=== PATIENT | female | born 1970 | race Caucasian/White ===

== ENCOUNTER 2018-01-09 08:59 | Inpatient (IN) | payer OTHER ==
[~2018-01-09] VITALS: Ht 154.9 cm; Wt 38.6 kg
[2018-01-09 11:20] VITALS: BP 93/65
--- NOTE | 2018-01-09 11:20 | NUR ---
Pre-admission Pre-admission assessment performed in the intake department of [facility]. Pt is A&O and ambulatory with steady gait. She is mildly intoxicated and answers questions appropriately. Vital signs are: B/P 93/65, HR 88, RR 16, O2 sat 97%, T. 98.0, pain 0/10. She is observed with pin point pupils, she is hyper verbal, with slightly slurred speech. She reports that she has been using Valium and Percocet. Last used both this morning prior to admission. She denies seizure history. Pt is stable and [facility].
[2018-01-09 11:50] LABS: *URINE HCG, QUAL NEGATIVE (NEGATIVE)
[2018-01-09 12:01] LABS: *AMPHETAMINE, URINE NEGATIVE (NEGATIVE); *BARBITURATE, URINE NEGATIVE (NEGATIVE); *CANNABINOID, URINE POSITIVE (NEGATIVE); *COCCAINE, URINE NEGATIVE (NEGATIVE); *OPIATE, URINE POSITIVE (NEGATIVE); *PHENCYCLIDINE SCREEN,URINE NEGATIVE (NEGATIVE)
[2018-01-09 12:30] VITALS: BP 107/62
--- NOTE | 2018-01-09 13:45 | NUR ---
Admission Pt is a 47 yo female who arrived on the [facility] unit on 01/09/18 at 1140 for medically supervised detox from Opioids and Benzodiazapines. She has been using Valium, Teec Nos Pos, and Percocet. She last used Teec Nos Pos 7.5-325mg x4 tabs, Percocet 5-325mg x4 tabs, and Valium 30mg prior to admission. She is A&O and ambulatory with a steady gait. She has NKA, is full code status, and on a regular diet. She appears mildly intoxicated and answers questions appropriately. She is observed with pin point pupils and slightly slurred speech. Pt appears to be under weight. Admission vital signs are: 107/62, HR 69, RR 18, O2 sat 100%, T 97.8, pain 0/10. She is 5'1" and weighs 85lb. She has lost approximately 20lbs over the past 3 months which she relates to her substance use and difficulties in her personal life. She last used Teec Nos Pos 7.5-325mg x4 tabs, Percocet 5-325mg x4 tabs, and Valium 30mg prior to admission. She is tearful during the admission process and expresses feelings of guilt and remorse regarding her substance use. She states "At one point my Doctor told me that if I take another pill I could ". Her past medical history includes spinal fusion in 2016, low back pain, anxiety, and depression. She denies any seizure history. Lung sounds clear, brisk capillary refill, PERRLA, bowel sounds present, abdomen is soft and non-tender, skin is warm and dry. Last bowel movement was this morning. LMP was 07/2017. She denies SI/HI. Substance Abuse History Valium 10-20mg intermittently starting 2 months ago She reports daily usage of 10-20mg over the past 2 weeks due to anxiety regarding coming to treatment. She first used Valium 2 months ago. Last used 30mg at 1000 today. Pt had difficulty reporting exact Valium use. She is even unsure whether she filled her prescriptions once or twice and she reports giving her Valium to friends. Teec Nos Pos 15-20 tabs of 7.5-325mg per day for the past 6 months. She first used Teec Nos Pos 12 years ago. She had 10 months of sobriety beginning in 2015 and started using Teec Nos Pos again 1.5 years ago. She last used 4 tabs this morning prior to admission. She states "I'm used to taking Teec Nos Pos every 2-3 hours". Percocet 7 tabs of 5-325mg over the past two days. A friend gave her 7 tabs of Percocet yesterday. She took 3 tabs yesterday and 4 tabs today at 0800. She does not use Percocet otherwise. The patient uses cocaine via nasal insufflation on an intermittent non-daily basis. First used 15 years and last used 12/30/17. She smokes marijuana daily. First used 31 years ago and last used 01/08/18. She smokes 1 pack of cigarettes per day. The patient attributes her substance use to "a lot of marital problems" which lead to divorce, her Son having substance abuse issues, and pain in her neck. She describes her symptoms of withdrawal as "uncomfortable, jonsing, can't find a place for yourself, depressed, sad, want to scream, dont' know what to do with myself". She also states "I don't really get to that point because I'm high all the time." She decided to come to treatment today because, "I've been meaning to for a long time. I need to get clear. I love my kids and Dad. I physically need to get strong. I need another surgery". She explains that when she is not using "everything is hard to do, including food shopping, laundry, and picking up the kids". After detox she verbalized that she wants to attend [facility] and will not be able to do residential treatment because she "has too many things to take care of at home". She attended treatment one other time. This was at [facility] in 2013 for 2 weeks. Prior to that she was prescribed Suboxone by her Doctor and she detoxed herself off of Teec Nos Pos. She ultimately relapsed after 10 months of sobriety. He longest period of sobriety was 1 year and 3 months starting in 2013. UDS positive for BZD's, Opiates, and Cannabinoids. Her primary care physician is Dr. Batsheva Casiano. Her friends are sources of support. Pt was educated regarding plan of care and all questions answered. Dr. Mercedes on the unit and he evaluated patient. CIWA and COWS not obtained on admission due to patient's recent use of Valium, Teec Nos Pos, and Percocet. She is currently mildly intoxicated although she reports increasing anxiety. Pt educated regarding use of the call light. Safety measures in place.
--- NOTE | 2018-01-09 14:00 | NUR ---
Nursing Note Dr. Mercedes evaluated patient and ordered 4 day Phenobarbital taper to start now and 3 day Subutex taper to start tomorrow. PRN Subutex and Ativan also ordered. Addendum: 01/09/18 at 1925 by JESUS HODGE RN Correction: Note entry time is meant to be 1600.
[2018-01-09] MEDS ORDERED: LORAZEPAM 1 MG TABLET PO PRN (14:45)
[2018-01-09] MEDS ORDERED: LOPERAMIDE HCL 2 MG CAPSULE PO PRN ×2 (14:45)
[2018-01-09] MEDS ORDERED: ONDANSETRON ODT 4 MG TAB.RAPDIS SL PRN (14:45)
[2018-01-09] MEDS ORDERED: BUPRENORPHINE HCL 2 MG TAB.SUBL SL PRN (14:45)
[2018-01-09] MEDS ORDERED: DICYCLOMINE HCL 20 MG TABLET PO PRN (14:45)
[2018-01-09] MEDS ORDERED: MAG HYDROX/AL HYDROX/SIMETH 30 ML LIQUID UDC PO PRN (14:45)
[2018-01-09] MEDS ORDERED: 6 DAY PHENOBARBITAL TAPER -SERENITY PROTOCOL PO PRN (14:45)
[2018-01-09] MEDS ORDERED: ACETAMINOPHEN 325 MG TABLET PO PRN (14:45)
[2018-01-09 16:00] VITALS: BP 105/70
[2018-01-09] MEDS ORDERED: 4 DAY PHENOBARBITAL TAPER -SERENITY PROTOCOL PO PRN (16:00)
--- NOTE | 2018-01-09 16:00 | NUR ---
Nursing Note Dr. Mercedes evaluated patient and ordered 4 day Phenobarbital taper to start now and 3 day Subutex taper to start tomorrow. PRN Subutex and Ativan also ordered.
[2018-01-09] MEDS: PHENOBARBITAL 60 MG TABLET PO SCH ×2 (16:20→20:33)
[2018-01-09 17:40] LABS: BASOPHILS # (AUTO) 0.1 K/uL (0.0-8.0); BASOPHILS % (AUTO) 0.7 % (0.0-2.0); EOSINOPHILS # (AUTO) 0.4 K/uL (0.0-0.7); EOSINOPHILS % (AUTO) 3.8 % (0.0-7.0); HEMATOCRIT 40.4 % (31.2-41.9); HEMOGLOBIN 13.7 g/dL (10.9-14.3); LYMPHOCYTES # (AUTO) 4.1 K/uL (20.0-40.0); LYMPHOCYTES % (AUTO) 37.9 % (20.5-51.5); MEAN CORPUSCULAR HEMOGLOBIN 35.8 uug (24.7-32.8); MEAN CORPUSCULAR HGB CONC 34 g/dL (32.3-35.6); MEAN CORPUSCULAR VOLUME 105.3 fL (75.5-95.3); MONOCYTES # (AUTO) 0.7 K/uL (2.0-10.0); MONOCYTES % (AUTO) 6.7 % (0.0-11.0); NEUTROPHILS # (AUTO) 5.5 K/uL (1.8-8.9); NEUTROPHILS % (AUTO) 50.9 % (38.5-71.5); PLATELET COUNT (AUTO) 438 K/uL (179-408); RED BLOOD CELL COUNT(AUTO) 3.84 MIL/uL (3.63-4.92); WHITE BLOOD COUNT (AUTO) 10.7 K/uL (3.8-11.8)
[2018-01-09 17:53] LABS: ALANINE AMINOTRANSFERASE 26 U/L (14-59); ALKALINE PHOSPHATASE 103 U/L (50-136); ASPARTATE AMINOTRANSFERASE 12 U/L (15-37); BILIRUBIN,TOTAL 0.2 mg/dL (0.2-1.0); CARBON DIOXIDE 28 mmol/L (21-32); CHLORIDE 105 mmol/L (98-107); CREATININE 0.7 mg/dL (0.6-1.3); GLUCOSE 81 mg/dL (74-106); MAGNESIUM 2.1 mg/dL (1.8-2.4); POTASSIUM 4.3 mmol/L (3.5-5.1); TOTAL PROTEIN, SERUM 7.7 g/dL (6.4-8.2); UREA NITROGEN, BLOOD 12 mg/dL (7-18)
[2018-01-09 18:01] LABS: ETHANOL < 3 MG/DL (0-0); THYROID STIMULATING HORMONE 0.486 mIU/mL (0.358-3.740)
--- NOTE | 2018-01-09 19:25 | NUR ---
END OF SHIFT Report provided to day shift nurse. Pt is in her room watching TV. She is a 47 yo female admitted to [facility] today for Opioid and BZD withdrawal. 4 day Phenobarbital taper started to day and 3 day Subutex taper will start tomorrow. Safety measures in place.
--- NOTE | 2018-01-09 19:30 | NUR ---
Start of shift Patient is a 47 year old female, admitted on 01/09/2018. Patient is here at [facility] for medically supervised withdrawal from Opiates and Benzos. Patient is on a 4 day Phenobarbital taper started on 01/09/2018 and on a 3 day Subutex taper starts on 01/10/2018. Patient did not have any PRN medications during day shift. Patients last COWS=6 and CIWA=10. Patient is on Fall and Seizure precautions. Upon round patient was noted in bed watching tv, patient seems withdrawn, flat affect, depressed and reports anxiety. Reviewed 2100 medications with patient and patient verbalized understanding of plan of care. Patient asked for PRN medication to help with sleep and anxiety. Safety measures in place, bed lock in low position, side rails up x2, and call light within reach. Will continue to monitor.
[2018-01-09] MEDS: HYDROXYZINE PAMOATE 25 MG CAPSULE PO PRN (19:48)
[2018-01-09] MEDS: diphenhydrAMINE 50 MG CAPSULE PO PRN (19:48)
--- NOTE | 2018-01-09 19:48 | NUR ---
PRN Vistaril 50 mg and Benadryl 50 mg Patient reports increased anxiety and difficulty falling asleep. PRN Vistaril 50 mg and Benadryl 50 mg were administered and patient tolerated well. Respirations are even and unlabored. Safety measures in place and will continue to monitor.
[2018-01-09] MEDS ORDERED: DIAZ10TA4 PO (19:57)
[2018-01-09] MEDS ORDERED: OXYC-128 PO (19:57)
[2018-01-09 20:00] VITALS: BP 104/61
--- NOTE | 2018-01-09 20:00 | NUR ---
COWS and CIWA Assessment Patient reports s/s of withdrawal as follow: increase anxiety, body aches, mild tremors, hot and chills, and irritable. Patients COWS= 7 and CIWA=10. Reparations are even and unlabored. Will continue to monitor.
--- NOTE | 2018-01-09 20:48 | NUR ---
PRN Vistaril 50 mg and Benadryl 50 mg Reassessment Patient is noted in bed lying with eyes half way closed, patient stated: Im falling asleep. Medication was noted to be effective. Patient did not report any anxiety. Respirations are even and unlabored. No signs or symptoms reported of adverse effects. Safety measures in place. Will continue to monitor.
--- NOTE | 2018-01-09 22:34 | NUR ---
Start of shift Patient is a 47 year old female, admitted on 01/09/2018. Patient is here at [facility] for medically supervised withdrawal from Opiates and Benzos. Patient is on a 4 day Phenobarbital taper started on 01/09/2018 and on a 3 day Subutex taper starts on 01/10/2018. Patient did not have any PRN medications during day shift. Patients last COWS=6 and CIWA=10. Patient is on Fall and Seizure precautions. Upon round patient was noted in bed watching tv, patient seems withdrawn, flat affect, depressed and reports anxiety. Reviewed 2100 medications with patient and patient verbalized understanding of plan of care. Patient asked for PRN medication to help with sleep and anxiety. Safety measures in place, bed lock in low position, side rails up x2, and call light within reach. Will continue to monitor. Addendum: 01/09/18 at 2236 by BENNETT MACHUCA RN Wrong time, correct time is 1929.
--- NOTE | 2018-01-10 | NUR ---
COWS and CIWA Deferred Patient noted in bed resting with eyes closed, breathing even and unlabored. Per protocol COWS and CIWA is to be assessed while awake. Safety measures in place and will continue to monitor.
[2018-01-10 00:02] VITALS: BP 110/62
[2018-01-10 04:46] VITALS: BP 108/72
--- NOTE | 2018-01-10 07:16 | NUR ---
End of shift Patient is a 47 year old female, admitted on 01/09/2018. Patient is here at [facility] for medically supervised withdrawal from Opiates and Benzos. Patient is on a 4 day Phenobarbital taper started on 01/09/2018 and on a 3 day Subutex taper starts on 01/10/2018. Patient had PRN Vistaril 50 mg, Benadryl 50mg for anxiety and insomnia. Patients last COWS=7 and CIWA=10. Patient is on Fall and Seizure precautions. Patient slept for 9 hours and total intake was 1,855ml. Patient voided x3 and had no bowel movements. Respirations are even and unlabored. Safety measures in place, bed lock in low position, side rails up x2, and call light within reach. Will endorse to day shift.
--- NOTE | 2018-01-10 07:30 | NUR ---
Start of Shift Transit Mix Operator received report on 47 year old female admitted to [facility] on 01/09/18 for medical management of Benzodiazepine and Opiate withdrawals. Pt endorses NKA, full code and regular diet. Endorses PMH to include spinal fusion. PPH of anxiety and depression. Pt currently on a 3 day Subutex and 4 day Phenobarbital taper with last CIWA 10 and COWS 7, per NOC report. Pt was administered Vistaril(anxiety) and Benadryl(insomnia) as PRN medications on NOC, per report. Transit Mix Operator encounters pt in pts room with pt resting with eyes closed. Even and unlabored respirations noted. Bed in low position with wheels locked and side rails up x2. Will continue to monitor, support and encourage according to plan of care.
[2018-01-10 08:00] VITALS: BP 101/49
[2018-01-10] MEDS ORDERED: TUBERCULIN,PURIF.PROT.DERIV. 5 TU/0.1 ML TEST ID ONE (09:00)
[2018-01-10] MEDS ORDERED: 3 DAY TAPER BUPRENORPHINE -SERENITY PROTOCOL SL PRN (09:00)
--- NOTE | 2018-01-10 09:30 | NUR ---
CIWA 12/COWS 12 Pt is anxious and restless with fine tremors and moist skin and runny nose. Pt with complaints of nausea and myalgia. Will continue to monitor, support and encourage according to plan of care.
--- NOTE | 2018-01-10 09:56 | NUR ---
Therapist prompted client to attend group therapy sessions, client stated she does not like group sessions and will not be attending.
[2018-01-10] MEDS: PHENOBARBITAL 60 MG TABLET PO SCH ×3 (10:08→20:34)
[2018-01-10] MEDS: BUPRENORPHINE HCL 2 MG TAB.SUBL SL SCH ×2 (10:09→20:35)
[2018-01-10 12:00] VITALS: BP 107/68
--- NOTE | 2018-01-10 12:00 | NUR ---
CIWA 12/COWS 11 Pt remains anxious and restless with fine tremors, stuffy nose and complaints of nausea and myalgia. Will continue to monitor, support and encourage according to plan of care.
--- NOTE | 2018-01-10 12:23 | NUR ---
PRN Ativan Pt requests medication for anxiety, rated at 7/10. Parliamentary Counsel educated pt on non-pharmacological interventions. Administered medication per order with pt tolerating well. Will continue to monitor, support and encourage according to plan of care.
--- NOTE | 2018-01-10 13:30 | NUR ---
PRN Re-Assessment Pt endorses relief. Pt is resting in room, watching TV. Will continue to monitor, support and encourage according to plan of care.
[2018-01-10] MEDS: DULOXETINE 30 MG CAPSULE.DR PO SCH (13:43)
[2018-01-10] MEDS: MIRALAX 17 GM POWD.PACK PO PRN (13:52)
[2018-01-10] MEDS ORDERED: CARI350T PO (15:39)
[2018-01-10 16:30] VITALS: BP 94/67
--- NOTE | 2018-01-10 18:59 | NUR ---
End of Shift Jumpbasting Facing Baster provided report on 47 year old female admitted to [facility] on 01/09/18 for medical management of Benzodiazepine and Opiate withdrawals. Pt endorses NKA, full code and regular diet. Endorses PMH to include spinal fusion. PPH of anxiety and depression. Pt currently on a 3 day Subutex and 4 day Phenobarbital taper with last CIWA9 and COWS 9. Pt was administered Ativan(anxiety) and Miralax(constipation) as PRN medications on this shift. Pt is A/O x4 and makes needs known. Pt is anxious and restless with tremors and diaphoresis, complaints of nausea and chills. Bed in low position with wheels locked and side rails up x2.
--- NOTE | 2018-01-10 19:53 | NUR ---
START OF SHIFT NOTE Rcvd report from outgoing nurse. Pt is a 47 y/o female A/O to person, place, time, and purpose. Pt was admitted for medically supervised withdrawal from Benzodiazepines and Opiates. Pt is on day 1 of a 5 day Subutex taper and and day 2 of a 4 day Phenobarbital taper. Pt has been presenting w/ depressed mood, restlessness, anxiety, body aches, stuffiness, sweats, and abdominal cramping. PRN Ativan and Miralax were given and noted effective by outgoing nurse. Last CIWA 9 and COWS 9 @ 1600. Call light is within reach. Pt will continue to be monitored and needs met.
[2018-01-10 20:03] VITALS: BP 103/77
--- NOTE | 2018-01-10 20:07 | NUR ---
CIWA AND COWS ASSESSMENT CIWA 10 and COWS 10. Pt has been presenting w/ depressed mood, restlessness, anxiety, body aches, stuffiness, sweats, and abdominal cramping. V/S: T:98.1, P:74, RR:18, SPO2:95, BP:103/77.
[2018-01-10] MEDS: diphenhydrAMINE 50 MG CAPSULE PO PRN (20:35)
[2018-01-10] MEDS: HYDROXYZINE PAMOATE 25 MG CAPSULE PO PRN (20:35)
--- NOTE | 2018-01-10 20:35 | NUR ---
PRN BENADRYL AND VISTARIL ADMINISTRATION Benadryl 50mg given for sleep. Vistaril 50mg given for anxiety. Pt states difficulty sleep due to racing thoughts. Will reassess pt in 1 hr.
--- NOTE | 2018-01-10 21:35 | NUR ---
PRN BENADRYL AND VISTARIL REASSESSMENT Pt in bed and states relief from anxiety. Pt states they feel like they are ready to fall asleep. Will continue to monitor pt.
--- NOTE | 2018-01-11 00:11 | NUR ---
CIWA AND COWS DEFERRED. V/S REFUSED Pt is in bed w/ her eyes closed. Pt's respirations are unlabored and even.
--- NOTE | 2018-01-11 04:19 | NUR ---
CIWA AND COWS DEFERRED. V/S REFUSED Pt is in bed w/ his eyes close. Pt's respirations are unlabored and even.
--- NOTE | 2018-01-11 07:16 | NUR ---
END OF SHIFT NOTE Endorsed pt to oncoming nurse. Pt is a 47 y/o female A/O to person, place, time, and purpose. Pt was admitted for medically supervised withdrawal from Benzodiazepines and Opiates. Pt completed day 1 of a 5 day Subutex taper and day 2 of a 4 day Phenobarbital taper. Pt continues presenting w/ depressed mood, restlessness, anxiety, body aches, stuffiness, sweats, and abdominal cramping. Pt denies any S/I or H/I. PRN Benadryl 50mg and Vistaril 50mg were given and noted effective. Pts fluid intake was 500ml and she slept for 8hrs. Last CIWA 10 and COWS 10 @ 1999. Call light is within reach.
--- NOTE | 2018-01-11 07:30 | NUR ---
Start of Shift: Pt. is a 47 y/o female admitted for the medically managed withdrawal from Benzodiazepines (Valium), and opiates ([place], Percocet). Pt. was also using Marijuana daily and Cocaine intermittently. Pt. was placed on a 3 day Subutex taper and a 4 day Phenobarbital taper to manage withdrawal symptoms. Endorsed from previous shift pt. presented with a depressed mood, body aches, restlessness, anxiety, abdominal cramping, and chills. Last COWS of 10 and CIWA of 10. PRN Vistaril and Benadryl given to manage withdrawal symptoms. Received pt. in room. Pt. awake in bed and complaining of severe body aches. Pt. presents with fine hand tremors, anxiety and restlessness. Pt. appears disheveled, with a sad affect. Educated pt. on medication regiment. Safety measures in place. Will continue to monitor pt.s behavior for safety.
[2018-01-11 08:00] VITALS: BP 92/60
--- NOTE | 2018-01-11 08:00 | NUR ---
COWS/CIWA Assessment / PRN Medication Pt. in room laying in bed. Pt. reports increased anxiety, constipation, severe body aches and rates the pain at a 10/10. Pt. is constantly shifting in her bed. Pt. presents with restlessness, fine hand tremors and diaphoresis. Pt. given scheduled medication alongside PRN Miralax, Motrin, Robaxin, and Vistaril. Will continue to monitor pt.'s behavior for safety and medication effectiveness. Addendum: 01/11/18 at 1322 by SAMEER JOSEPH RN COWS of 12 and CIWA of 13
[2018-01-11] MEDS: PHENOBARBITAL 60 MG TABLET PO SCH ×2 (08:07→20:56)
[2018-01-11] MEDS: METHOCARBAMOL 750 MG TABLET PO PRN ×2 (08:08→18:30)
[2018-01-11] MEDS: BUPRENORPHINE HCL 2 MG TAB.SUBL SL SCH ×3 (08:08→20:56)
[2018-01-11] MEDS: HYDROXYZINE PAMOATE 25 MG CAPSULE PO PRN ×2 (08:08→23:43)
[2018-01-11] MEDS: DULOXETINE 30 MG CAPSULE.DR PO SCH (08:08)
[2018-01-11] MEDS: MIRALAX 17 GM POWD.PACK PO PRN (08:09)
[2018-01-11] MEDS: IBUPROFEN 400 MG TABLET PO PRN ×2 (08:09→18:30)
--- NOTE | 2018-01-11 09:00 | NUR ---
PRN Re-Assessment Pt. reports a decreased in anxiety, having a BM and body aches of 1/10. Medication effective. Will continue to monitor pt.'s behavior for safety.
[2018-01-11 12:00] VITALS: BP 130/70
[2018-01-11 12:07] LABS: HEPATITIS B SURFACE AG Negative (Negative)
--- NOTE | 2018-01-11 12:15 | NUR ---
COWS/CIWA Assessment / PRN Medication COWS of 10 and CIWA of 11. Pt. in room laying in bed. Pt. reports increased anxiety, and body aches. Pt. presents with restlessness, and tremors. PRN Clonidine given at this time to help pt. manage her anxiety. Will continue to monitor pt.'s behavior for safety and medication effectiveness.
[2018-01-11] MEDS: CLONIDINE HCL 0.1 MG TABLET PO PRN (12:18)
[2018-01-11] MEDS: ENSURE WITH FIBER 237 ML LIQUID (CHOCOLATE) PO SCH ×2 (12:50→17:50)
--- NOTE | 2018-01-11 13:00 | NUR ---
PRN Re-Assessment Pt. reports a decrease in her anxiety. Medication effective. Will continue to monitor pt.'s behavior for safety.
--- NOTE | 2018-01-11 15:23 | NUR ---
Therapist prompted client to attend group therapy
--- NOTE | 2018-01-11 16:30 | NUR ---
COWS/CIWA Assessment COWS of 10 and CIWA of 11. Pt. in room laying in bed and presents with anxiety, restlessness, and body aches. Pt. compliant with medication regiment and treatment plan. Will continue to monitor pt.'s behavior for safety.
[2018-01-11 16:51] VITALS: BP 89/62
--- NOTE | 2018-01-11 18:30 | NUR ---
PRN Medication Pt. laying in bed watching television. Pt. reports 6/10 low back pain. PRN Robaxin and Motrin given at this time. Will continue to monitor pt.'s behavior for safety and medication effectiveness.
--- NOTE | 2018-01-11 19:30 | NUR ---
End of Shift: Pt. is a 47 y/o female admitted for the medically managed withdrawal from Benzodiazepines (Valium), and opiates ([place], Percocet). Pt. was also using Marijuana daily and Cocaine intermittently. Pt. was placed on a 3 day Subutex taper and a 4 day Phenobarbital taper to manage withdrawal symptoms. Throughout shift pt. presented with a depressed mood, body aches, restlessness, anxiety, and chills. Last COWS of 10 and CIWA of 11. Safety measures in place. Will endorse pt.'s care to oncoming shift.
--- NOTE | 2018-01-11 19:30 | NUR ---
PRN Motrin and Robaxin Reassessment Per endorsement patient was experiencing pain in her lower back of 6/10. Medication was administered and patient was noted in bed and she said medication was effective her pain level decreased to 4/10. Respirations even and unlabored. Safety measures in place. Will continue to monitor.
--- NOTE | 2018-01-11 19:30 | NUR ---
Start of shift Patient is a 47 year old female, admitted on 01/09/2018. Patient is here at [facility] for medically supervised withdrawal from Opiates and Benzos. Patient is on a 4 day Phenobarbital taper started on 01/09/2018 and on a 3 day Subutex taper starts on 01/10/2018. Patient had PRN Robaxin, Clonidine, Vistaril, Maalox, and Motrin during day shift at 1830. Will reassess patient for medication effectiveness. Patients last COWS=10 and CIWA=11. Patient is on Fall and Seizure precautions. Upon round patient was noted in bed watching tv, patient seems withdrawn, flat affect, and depressed. Reviewed 2100 medications with patient and patient verbalized understanding of plan of care. Patient asked for PRN medication to help with sleep and constipation medication. Safety measures in place, bed lock in low position, side rails up x2, and call light within reach. Will continue to monitor.
[2018-01-11 20:00] VITALS: BP 103/59
--- NOTE | 2018-01-11 20:00 | NUR ---
COWS and CIWA Assessment Patient is displaying sings of withdrawal: anxiety, agitation, and chills. Patients COWS is 7 and CIWA is 10. Respirations are even and unlabored. Safety measures in place, will continue to monitor patient.
[2018-01-11] MEDS: diphenhydrAMINE 50 MG CAPSULE PO PRN (20:57)
[2018-01-11] MEDS: MAGNESIUM HYDROXIDE 30 ML LIQUID UDC PO PRN (20:57)
--- NOTE | 2018-01-11 20:57 | NUR ---
PRN Benadryl, Milk of Magnesium Patient complains of constipation and insomnia. Patient reports she has not had a bowel movement in three days, on auscultation bowel sounds are present in all four quadrants. Administered Benadryl and Milk of magnesium for symptoms. Respirations are even and unlabored. Safety measures in place and will continue to monitor.
--- NOTE | 2018-01-11 21:57 | NUR ---
ABRIL [employer]is, Milk of Magnesium Patient is in bed with eyes closed, medication was noted to be effective. Will continue to assess for constipation and medication effectiveness, will continue to monitor for symptoms. Respirations are even unlabored. Safety measures in place. Addendum: 01/12/18 at 0057 by BENNETT MACHUCA RN ABRIL Solis Milk of Magnesium Reassessment
--- NOTE | 2018-01-11 23:43 | NUR ---
PRN Vistaril 50 mg Patient reports increased anxiety and wanted something to help her. Administered PRN Vistaril 50mg and patient tolerated well. Respirations are even and unlabored. Safety measures in place and will continue to monitor.
[2018-01-12] VITALS: BP 98/64
--- NOTE | 2018-01-12 | NUR ---
COWS and CIWA Assessment Patient is displaying sings of withdrawal: anxiety, agitation, and chills. Patients COWS is 10 and CIWA is 11. Respirations are even and unlabored. Safety measures in place, will continue to monitor patient.
--- NOTE | 2018-01-12 00:43 | NUR ---
PRN Vistaril 50 mg Reassessment Patient is in bed with eyes closed, medication was noted to be effective. Patient did not display any s/s of adverse effects. Respirations are even and unlabored. Safety measures in place and will continue to monitor.
[2018-01-12 04:00] VITALS: BP 100/68
--- NOTE | 2018-01-12 07:16 | NUR ---
End of shift Patient is a 47 year old female, admitted on 01/09/2018. Patient is here at [facility] for medically supervised withdrawal from Opiates and Benzos. Patient is on a 4 day Phenobarbital taper started on 01/09/2018 and on a 3 day Subutex taper starts on 01/10/2018. Patient had PRN Benadryl, Vistaril, and Milk of Magnesium during this shift. Patients last COWS=10 and CIWA=11. Patient is on Fall and Seizure precautions. Patient slept for 8 hours and voided x2 and had no bowel movements. Patients total intake was 750ml. Safety measures in place, bed lock in low position, side rails up x2, and call light within reach. Will endorse to day shift.
--- NOTE | 2018-01-12 07:47 | NUR ---
BEGINNING OF SHIFT Patient received awake, alert and oriented x4, educated regarding plan of care for the day and medication regimen, with good verbal understanding. Patient endorsement report received form shift coordinator nurse, all pertinent information was discussed. Patient with admitting Dx: Opiate/BZO withdrawal. And substance use of: cocaine, and marijuana. Patient continues with ongoing 3 day Subutex taper and 4 day phenobarbital taper, as ordered. Patient received PRN: Benadryl, Milk of Magnesium and Vistaril, per lieutenant shift supervisor medication was effective. Patient slept for 8 hours. Safety measures are in place. call light with in reach, will continue to monitor closely.
[2018-01-12 08:31] VITALS: BP 101/61
[2018-01-12] MEDS: DULOXETINE 30 MG CAPSULE.DR PO SCH ×2 (08:33→16:54)
[2018-01-12] MEDS: ENSURE WITH FIBER 237 ML LIQUID (CHOCOLATE) PO SCH ×3 (08:33→16:54)
[2018-01-12] MEDS: METHOCARBAMOL 750 MG TABLET PO PRN ×2 (08:51→16:54)
[2018-01-12] MEDS: HYDROXYZINE PAMOATE 25 MG CAPSULE PO PRN ×3 (08:51→23:59)
[2018-01-12] MEDS: MIRALAX 17 GM POWD.PACK PO PRN (08:51)
[2018-01-12] MEDS: IBUPROFEN 400 MG TABLET PO PRN ×2 (08:51→15:15)
--- NOTE | 2018-01-12 08:51 | NUR ---
PRN: ROBAXIN/MOTRIN/VISTARIL/MIRALAX Patient reports back pain 10/25, Administered Robaxin and Motrin as ordered. Patient reported increase anxiety, provided with non pharmacological interventions with no relief. Patient c/o feeling constipated, administered miralax as ordered, will monitor effectiveness of medications.
[2018-01-12] MEDS ORDERED: PHENOBARBITAL 60 MG TABLET PO SCH (09:00)
[2018-01-12] MEDS ORDERED: BUPRENORPHINE HCL 2 MG TAB.SUBL SL SCH (09:00)
--- NOTE | 2018-01-12 09:00 | NUR ---
CIWA ASSESSMENT Patient noted exhibiting the following s/sx of withdrawal: Difficulty sitting still, fidgety, restless, arthralgias, myalgias, fine tremors, anxiety, agitation, difficulty concentrating, emotional volatility, and increased emotional amplitude. Patient with current COW score fo: 7, and current CIWA score of: 10. Received last dose of Subutex taper, will continue to monitor.
--- NOTE | 2018-01-12 09:51 | NUR ---
ROBAXIN/MOTRIN/VISTARIL/MIRALAX REASSESSMENT Patient reports Robaxin and Motrin effective, at reducing back pain, current back pain level, /10. Patient reports feeling less anxious, medication effective. currently denies any episodes of miralax, medication currently not effective, encouraged patient to increase PO fluid intake as tolerated.
[2018-01-12] MEDS: CLONIDINE HCL 0.1 MG TABLET PO PRN ×2 (12:02→21:45)
--- NOTE | 2018-01-12 12:02 | NUR ---
PRN CLONIDINE Patient reports increase in anxiety, and feeling agitated. Patient provided with calming reassurance. Patient noted pacing in room and wringing hands. Encouraged to express self, non pharmacological interventions not effective, administered Clonidine, will monitor effectiveness of medication.
[2018-01-12 12:37] VITALS: BP 110/64
--- NOTE | 2018-01-12 13:00 | NUR ---
CIWA ASSESSMENT Patient presents with the following s/sx: Fidgety, restless, Difficulty sitting still, arthralgias, myalgias, fine tremors, anxiety, agitation, difficulty concentrating, emotional volatility, and increased emotional amplitude. Patient with current COW score fo: 7, and current CIWA score of: 10. Will continue to monitor.
--- NOTE | 2018-01-12 13:02 | NUR ---
CLONIDINE REASSESSMENT Patient reports feeling less anxious and agitated, noted patient calm. Medication effective, will continue to monitor.
[2018-01-12] MEDS ORDERED: METH-406 PO (13:56)
[2018-01-12] MEDS ORDERED: DIPH50CA37 PO (13:56)
[2018-01-12] MEDS ORDERED: HYDR-3895 PO (13:56)
[2018-01-12] MEDS ORDERED: CLON0.1T14 PO (13:56)
--- NOTE | 2018-01-12 15:15 | NUR ---
PRN MOTRIN/VISTARIL Patient verbalized " my back is hurting again" current pain level 7/10. Patient also reports feeling anxious again. Provided with non pharmacological interventions with no relief, administered Motrin and Vistaril as ordered, will monitor effectiveness of medication.
--- NOTE | 2018-01-12 16:15 | NUR ---
MOTRIN/VISTARIL REASSESSMENT Patient reports motrin effective, current pain level 3/10, medication effective. Patient reports Vistaril effective, reports feeling less anxious, medication effective, will continue to monitor.
--- NOTE | 2018-01-12 16:54 | NUR ---
ABRIL CLARK Patient c/o myalgia 08/25, provided with non pharmacological interventions with no relief, Will monitor effectiveness of medication.
[2018-01-12 16:55] VITALS: BP 125/55
--- NOTE | 2018-01-12 17:00 | NUR ---
CIWA ASSESSMENT continues to exhibit the following s/sx: Fidgety, restless, Difficulty sitting still, arthralgias, myalgias, fine tremors, anxiety, agitation, difficulty concentrating, emotional volatility, and increased emotional amplitude. Patient with current COW score fo: 7, and current CIWA score of: 10. Will continue to monitor.
--- NOTE | 2018-01-12 17:54 | NUR ---
ROBAXIN REASSESSMENT Patient reports medication effective, current pain level 2/10, will continue to monitor.
--- NOTE | 2018-01-12 19:18 | NUR ---
END OF SHIFT Patient endorsed to web methods developer nurse, all pertinent information was discussed. Patient continues under close observation. Patient noted with anxious affect and anxious mood. Patient noted presenting with the following withdrawal symptoms: Difficulty sitting still, fidgety, restless, arthralgias, myalgias, fine tremors, anxiety, agitation, difficulty concentrating, emotional volatility, and increased emotional amplitude. Patient with last COW score fo: 7, and last CIWA score of: 10. Patient received PRN: clonidine, Robaxin x2, Motrin x2, Vistaril x2, and Miralax as ordered, medications were effective. Patient encouraged to participate in therapy sessions, and encouraged diversional activities to alleviate anxiety. Patient noted attending and participating, denies SI/HI.
--- NOTE | 2018-01-12 19:30 | NUR ---
Start of shift Patient is a 47 year old female, admitted on 01/09/2018. Patient is here at [facility] for medically supervised withdrawal from Opiates and Benzos. Patient is on a 4 day Phenobarbital taper and on a 3 day Subutex taper. Patient is set for discharge for 01/13/2018. Patients last COWS is 7 and CIWA 10. Per endorsement patient had PRN Robaxin, Motrin, Vistaril, Clonidine, and Miralax. Medication was noted to be effective, except the Miralax. Patient reports she has not had a bowel movement all day today. Upon rounds patient appears friendly, cooperative, soft speech, and depressed. Patient is on Fall and Seizure precautions. Reviewed plan of care with the patient and patient verbalized understanding. Patient requested PRN medication for sleep before bedtime. Safety measures in place, bed lock in low position, side rails up x2, and call light within reach. Will continue to monitor.
[2018-01-12 20:00] VITALS: BP 107/64
--- NOTE | 2018-01-12 20:00 | NUR ---
COWS and CIWA Assessment Patient reports s/s of withdrawal as follow: anxiety, agitation, goosebump, tremors and sweats. Patients COWS is 7 and CIWA 9. Respirations are even unlabored, will continue to monitor.
[2018-01-12] MEDS: diphenhydrAMINE 50 MG CAPSULE PO PRN (21:44)
--- NOTE | 2018-01-12 21:44 | NUR ---
PRN Milk of Magnesium, Benadryl, and Clonidine Patient reports increased anxiety, insomnia, and constipation. Administered PRN Milk of Magnesium, Benadryl, and Clonidine and were well tolerated. Respirations are even and unlabored. Safety measures in place. Will continue to monitor.
[2018-01-12] MEDS: MAGNESIUM HYDROXIDE 30 ML LIQUID UDC PO PRN (21:45)
--- NOTE | 2018-01-12 22:44 | NUR ---
PRN Milk of Magnesium, Benadryl, and Clonidine Reassessment Patient noted in room watching tv, patient reports she is getting ready for bed. Medications is still working and has not felt full effect. Patient reports she is still experience some anxiety but will wait for medication effectiveness. Respirations are even and unlabored. Safety measures in place, will continue to assess and monitor patient.
--- NOTE | 2018-01-12 23:59 | NUR ---
PRN Vistaril 50mg Patient reports she cannot go to sleep due to anxiety. Administered PRN Vistaril 50 mg and was well tolerated. Respirations are even and unlabored. Safety measures in place. Will continue to monitor.
[2018-01-13] VITALS: BP 106/65
--- NOTE | 2018-01-13 | NUR ---
COWS and CIWA Assessment Patient reports s/s of withdrawal as follow: anxiety, agitation, goosebump, tremors and sweats. Patients COWS is 10 and CIWA 9. Respirations are even unlabored, will continue to monitor.
--- NOTE | 2018-01-13 00:59 | NUR ---
PRN Vistaril 50mg Reassessment Patient noted in room with eyes close, with lights and tv off. Patient is noted to be resting and medication was effective. Respirations are even and unlabored. Safety measures in place. Will continue to monitor patient.
[2018-01-13 04:00] VITALS: BP 104/69
--- NOTE | 2018-01-13 07:33 | NUR ---
End of shift Patient is a 47 year old female, admitted on 01/09/2018. Patient is here at [facility] for medically supervised withdrawal from Opiates and Benzos. Patient is on a 4 day Phenobarbital taper and on a 3 day Subutex taper. Patient is being discharge today 01/13/2018. Patients last COWS is 10 and CIWA 9. Patient had PRN Milk of Magnesium, Benadryl, Clonidine, and Vistaril during this shift. Patient was having difficulty falling asleep. Patient is on Fall and Seizure precautions. Patient slept for 7 hours. Respirations even and unlabored. Safety measures in place, bed lock in low position, side rails up x2, and call light within reach. Will endorse to day shift.
--- NOTE | 2018-01-13 08:02 | NUR ---
BEGINNING OF SHIFT Patient endorsement report received from manager shift nurse, all pertinent information was discussed. Patient completed Subutex and Phenobarbital tapers as ordered, and is scheduled to be discharged this morning. Patient slept for 7 hours. Last CIWA score of: 9, last COW score of: 10. Received PRN: Benadryl, Clonidine, and Vistaril during manager shift. Per manager shift medications were effective. Patient received awake, alert and oriented x4, educated regarding plan of care for the day and medication regimen, with good verbal understanding, will educate patient regarding all discharge instructions. Safety measures are in place. call light with in reach, will continue to monitor closely.
[2018-01-13 08:28] VITALS: BP 101/59
[2018-01-13] MEDS: IBUPROFEN 400 MG TABLET PO PRN (08:32)
[2018-01-13] MEDS: METHOCARBAMOL 750 MG TABLET PO PRN (08:32)
[2018-01-13] MEDS: HYDROXYZINE PAMOATE 25 MG CAPSULE PO PRN (08:32)
[2018-01-13] MEDS: DULOXETINE 30 MG CAPSULE.DR PO SCH (08:32)
[2018-01-13] MEDS: ENSURE WITH FIBER 237 ML LIQUID (CHOCOLATE) PO SCH (08:33)
[2018-01-13] MEDS ORDERED: DULO30CA2 PO (09:08)
--- NOTE | 2018-01-13 09:44 | NUR ---
DISCHARGE Patient discharged off the unit in stable condition at 0944, prior to discharge patient was educated and provided with teaching regarding all discharge instructions with good verbal understanding. Prior to discharge patient was administered PRN: Motrin, Vistaril and Robaxin all as ordered, due to patient c/o back pain and myalgia 08/25 and c/o increase anxiety. Medications were reassessed one hour post administration and medications were effective, pain level upon discharge 05/28, no further myalgia and decrease in anxiety. Patient with last CIWA score of: 8, and last COW score of: 6. Vital signs WNL. patient noted self motivated towards sobriety. Patient did not bring any home medications. Prescriptions and discharge instructions were placed in patients personal duffel bag. off the unit in no apparent acute distress at 0944.
== END 2018-01-13 09:45 | disposition home or self-care (01) | DRG 895 ==
LOC: SRC 10:57
PROVIDERS: ADMIT Family Medicine Addiction Medicine; ATTEND Family Medicine Addiction Medicine
PROC: HZ2ZZZZ Detoxification Services for Substance Abuse Treatment (ICD-10-PCS; principal; 2018-01-09)
PROC: HZ31ZZZ Individual Counseling for Substance Abuse Treatment, Behavioral (ICD-10-PCS; 2018-01-10)
PROC: HZ41ZZZ Group Counseling for Substance Abuse Treatment, Behavioral (ICD-10-PCS; 2018-01-12)
DX: F11.23 Opioid dependence with withdrawal (principal); F41.1 Generalized anxiety disorder; Z98.1 Arthrodesis status; F17.210 Nicotine dependence, cigarettes, uncomplicated; F50.9 Eating disorder, unspecified; R63.6 Underweight; F32.9 Major depressive disorder, single episode, unspecified; F14.90 Cocaine use, unspecified, uncomplicated; F13.230 Sedative, hypnotic or anxiolytic dependence with withdrawal, uncomplicated
CPT/HCPCS: 36415; 70030-TC; 80307; 80346; 80349; 80361; 83735; 84443; 84703; 85025; 86580; 86592; 86705; 86803; 87340; 87806; A4663; G0480; J8499; Q0163